=== PATIENT | male | born 1985 | race Caucasian/White ===

== ENCOUNTER 2018-04-23 21:04 | Emergency (ER) | payer OTHER ==
[~2018-04-23 21:04] MED LIST: NO ROUTINE MEDS; PER PO
--- NOTE | 2018-04-23 21:07 | ER Report ---
History and Physical Time Seen By MD: 21:07 HPI/ROS CHIEF COMPLAINT: Syncopal episode, fall HISTORY OF PRESENT ILLNESS: Patient is a 33-year-old male here with complaints of syncopal episode at which time he fell and struck the back of his head. Patient reports headache post fall. Patient denies further injuries at this time. Patient is alert and oriented in no acute distress. Denies fevers, chills , chest pain, shortness breath. REVIEW OF SYSTEMS: Constitutional: No fever, no chills. Eyes: No discharge. ENT: No sore throat. Cardiovascular: No chest pain, no palpitations. Respiratory: No cough, no shortness of breath. Gastrointestinal: No abdominal pain, no vomiting. Genitourinary: No hematuria. Musculoskeletal: No back pain. Skin: No rashes. Neurological: + headache. Allergies: Coded Allergies: Cephalosporins (Verified Allergy, Mild, RASH, 04/23/18) Sulfa (Sulfonamide Antibiotics) (Verified Allergy, Mild, RASH, 04/23/18) cefaclor (Verified Allergy, Mild, RASH, 04/23/18) latex (Verified Allergy, Mild, RASH, 04/23/18) Uncoded Allergies: PCN (Allergy, Mild, RASH, 09/15/07) Home Meds No Active Prescriptions or Reported Meds Constitutional Vital Sign - Last 24 Hours 04/23/18 04/23/18 04/23/18 04/23/18 21:07 21:35 21:36 21:36 Temp 97.8 Pulse 80 76 92 98 Resp 16 20 18 18 B/P (MAP) 135/78 140/76 (97) 126/80 (95) 132/80 (97) Pulse Ox 96 98 96 96 O2 Delivery Room Air Room Air Room Air Room Air Physical Exam General Appearance: The patient is alert, has no immediate need for airway protection and no signs of toxicity. Eyes: Pupils equal and round no pallor or injection. ENT, Mouth: Mucous membranes are moist. Respiratory: There are no retractions, lungs are clear to auscultation. Cardiovascular: Regular rate and rhythm. Gastrointestinal: Abdomen is soft and non tender, no masses, bowel sounds normal. Neurological: + small hematoma of the back of head Skin: Warm and dry, no rashes. Musculoskeletal: Neck is supple non tender. Extremities are nontender, nonswollen and have full range of motion. DIFFERENTIAL DIAGNOSIS: After history and physical exam differential diagnosis was considered for syncope including but not limited to vasovagal syncope, arrhythmia, dehydration, and blood loss. Medical Decision Making EKG/Imaging Imaging HEAD CT: Indication: Injury. Technique: Contiguous axial sections were obtained from the base to the vertex without contrast enhancement. One of the following dose optimization techniques was utilized in the performance of this exam: Automated exposure control; adjustment of the mA and/ or kV according to the patient's size; or use of an iterative reconstruction technique. Specific details can be referenced in the facility's radiology CT exam operational policy. Comparison: None. Findings: There is no evidence of intra-axial or extra-axial hemorrhage. No focal areas of decreased or increased attenuation are identified. There is no evidence of mass, edema, or shift of the midline structures. The size, shape, and configuration of the ventricular system are normal. There is localized soft tissue swelling in the right posterior scalp. The skeletal structures are intact and unremarkable. There is no evidence of fracture or other acute deformity. The visualized paranasal sinuses and mastoid air cells are clear. Impression: Scalp soft tissue swelling. No evidence of fracture or hemorrhage. ED Course/Re-evaluation ED Course Patient is a 33-year-old male here status post syncopal episode. Patient was well-appearing at time of evaluation. CT imaging of the head was completed and showed no intracranial pathology. Patient was discharged in stable condition with no focal neurological deficits. Patient was advised follow-up with family doctor in one week and to take concussion precautions. Decision to Disposition Date: Apr 23, 2018 Decision to Disposition Time: 22:25 Depart Departure Latest Vital Signs Vital Signs Date Time Temp Pulse Resp B/P (MAP) Pulse Ox O2 Delivery O2 Flow Rate FiO2 04/23/18 21:36 98 18 132/80 (97) 96 Room Air 04/23/18 21:07 97.8 Impression: Primary Impression: Concussion Condition: Improved Disposition: HOME OR SELF-CARE New Scripts No Active Prescriptions or Reported Meds Patient Instructions: Post Concussion Syndrome (ED) Additional Instructions: Please follow-up with your family doctor in one week. Please return promptly if you develop worsening headache, blurred vision, fevers, neck pain, inability to tolerate oral intake. SANDI MERCER DO Apr 23, 2018 21:07
[2018-04-23 21:36] VITALS: BP 126/80
--- NOTE | 2018-04-23 22:07 | RADIOLOGY IMAGING REPORT ---
FACILITY: [facility] PATIENT NAME: Anthony Rojas : 1985 MR: [id number] V: [id number] EXAM DATE: ORDERING PHYSICIAN: SANDI MERCER TECHNOLOGIST: Location: [facility] - [place] Patient: Anthony Rojas : 1985 Visit/Account:[id number] Date of Sevice: 04/23/[address]: Indication: Injury. Technique: Contiguous axial sections were obtained from the base to the vertex without contrast enhan cement. One of the following dose optimization techniques was utilized in the performance of this exam: Autom ated exposure control; adjustment of the mA and/or kV according to the patient's size; or use of an i terative reconstruction technique. Specific details can be referenced in the facility's radiology CT exam operational policy. Comparison: None. Findings: There is no evidence of intra-axial or extra-axial hemorrhage. No focal areas of decreased or increased attenuation are identified. There is no evidence of mass, edema, or shift of the midline structures. The size, shape, and configuration of the ventricular system are normal. There is localized soft tissue swelling in the right posterior scalp. The skeletal structures are int act and unremarkable. There is no evidence of fracture or other acute deformity. The visualized paran olga sinuses and mastoid air cells are clear. Impression: Scalp soft tissue swelling. No evidence of fracture or hemorrhage. Report Dictated By: Neo Muller MD at 04/23/2018 10:01 PM Report E-Signed By: Neo Muller MD at 04/23/2018 10:03 PM [id number]
== END 2018-04-23 22:27 | disposition home or self-care (01) ==
LOC: ER 21:19
DX: S06.0X9A Concussion with loss of consciousness of unspecified duration, initial encounter (principal); W19.XXXA Unspecified fall, initial encounter
CPT/HCPCS: 70450; 99283; L0172